=== PATIENT | female | born 1970 | race Hispanic/Latino ===

== ENCOUNTER 2024-04-27 04:33 | Inpatient (IN) | payer BC ==
[~2024-04-27] VITALS: Ht 162.6 cm; Wt 56.7 kg
[2024-04-27] MEDS: ondanSETRON 4MG INJ IVP ONE (05:12)
[2024-04-27] MEDS: LACTATED RINGERS 1000ML 1,000 ML IV ONE (05:12)
[2024-04-27] MEDS: morPHINE 4 MG SYG IVP ONE (05:12)
[2024-04-27 05:13] LABS: BASOPHILS # (AUTO) 0.03 K/uL (0.00-0.20); BASOPHILS % (AUTO) 0.5 % (0.0-5.0); EOSINOPHILS # (AUTO) 0.05 K/uL (0.00-0.70); EOSINOPHILS % (AUTO) 0.8 % (0.0-8.0); HEMATOCRIT 44.4 % (36-48); IMMATURE GRANULOCYTE ABSOLUTE 0.02 K/uL (0-1); LYMPHOCYTES # (AUTO) 2.7 K/uL (1.0-4.8); LYMPHOCYTES % (AUTO) 44.4 % (21.0-51.0); MEAN CORPUSCULAR HEMOGLOBIN 29.8 pg (27.0-33.0); MEAN CORPUSCULAR HGB CONC 33.1 g/dL (32.0-36.0); MEAN CORPUSCULAR VOLUME 89.9 fL (79-99); MONOCYTES # (AUTO) 0.4 K/uL (0.1-1.0); MONOCYTES % (AUTO) 6.8 % (3.0-13.0); NEUTROPHILS # (AUTO) 2.8 K/uL (1.8-7.7); NEUTROPHILS % (AUTO) 47.2 % (40.0-77.0); PLATELET COUNT (AUTO) 230 K/uL (130-400); RED BLOOD CELL COUNT(AUTO) 4.94 MIL/uL (4.00-5.50); RED CELL DISTRIBUTION WIDTH 12.1 % (11.0-15.5)
[2024-04-27 05:23] LABS: CREATININE 0.9 mg/dL (0.5-1.0); POTASSIUM 3.9 mmol/L (3.5-5.1)
[2024-04-27 05:27] LABS: ALBUMIN 3.6 g/dL (3.5-5.0); BILIRUBIN,DIRECT 0.1 mg/dL (0.0-0.3); BILIRUBIN,TOTAL 0.4 mg/dL (0.2-1.0)
[2024-04-27] MEDS ORDERED: IOHEXOL 350 MG/ML 100ML INFUS..BTL IV ONE (06:20)
[2024-04-27 07:14] LABS: APPEARANCE,URINE CLEAR (CLEAR); BILIRUBIN,URINE NEGATIVE (NEGATIVE); COLOR,URINE COLORLESS (YELLOW); GLUCOSE, URINE (UA) NEGATIVE (NEGATIVE); KETONES,URINE NEGATIVE (NEGATIVE); LEUKOCYTE ESTERASE ,URINE NEGATIVE Leu/uL (NEGATIVE); NITRATE,URINE NEGATIVE (NEGATIVE); OCCULT BLOOD,URINE NEGATIVE (NEGATIVE); PH,URINE 6.5 (5.0-8.0); PROTEIN,URINE NEGATIVE (NEGATIVE); UROBILINOGEN,URINE 0.2 mg/dL (0.2-1.0)
[2024-04-27 07:15] LABS: ADD UA MICROSCOPIC NO
[2024-04-27] MEDS ORDERED: ondanSETRON 4MG INJ IVP PRN (09:30)
[2024-04-27] MEDS ORDERED: acetaMINOPHEN 325 MG TAB PO PRN (09:30)
[2024-04-27] MEDS ORDERED: morPHINE 2 MG SYG IVP PRN (09:30)
[2024-04-27] MEDS ORDERED: PoTASSium chloRIDE 20MEQ/100ML 100 ML IV PRN (10:00)
[2024-04-27] MEDS ORDERED: MAGNESIUM 2GM PREMIX 50ML 50 ML IV PRN (10:00)
[2024-04-27] MEDS: 0.9%NACL 1000ML 1,000 ML IV SCH (11:52)
[2024-04-27] MEDS ORDERED: OMEP40CA21 PO (12:05)
[2024-04-27] MEDS ORDERED: METO-408 PO (12:05)
[2024-04-27] MEDS ORDERED: ELET40TA PO (12:05)
[2024-04-27] MEDS ORDERED: ROSU40 PO (12:05)
[2024-04-27] MEDS ORDERED: FLUT1DIS3 IH (12:06)
[2024-04-27 12:42] VITALS: BP 122/73; PULSE 63; RESP 20; TEMP 97.1
[2024-04-27 13:10] VITALS: O2SAT 98
[2024-04-27 15:05] VITALS: BP 128/72; PULSE 67; RESP 18; TEMP 97.7
[2024-04-27 20:00] VITALS: BP 132/79; PULSE 53; RESP 20; TEMP 97.8; O2SAT 93
[2024-04-27] MEDS: FAMOTIDINE 20MG VIAL IV SCH (20:14)
[2024-04-27 23:40] VITALS: BP 110/62; PULSE 68; RESP 20; TEMP 97.6
[2024-04-28] VITALS (27 sets, daily range): BP systolic 120–165; BP diastolic 72–97; PULSE 59–89; RESP 15–20; TEMP 97.1–99; O2SAT 93
[2024-04-28 05:37] LABS: HEMATOCRIT 40.1 % (36-48); MEAN CORPUSCULAR HEMOGLOBIN 29.8 pg (27.0-33.0); MEAN CORPUSCULAR HGB CONC 32.9 g/dL (32.0-36.0); MEAN CORPUSCULAR VOLUME 90.5 fL (79-99); RED BLOOD CELL COUNT(AUTO) 4.43 MIL/uL (4.00-5.50); RED CELL DISTRIBUTION WIDTH 12.4 % (11.0-15.5); WHITE BLOOD COUNT (AUTO) 4.7 K/uL (4.8-10.8)
[2024-04-28 06:09] LABS: BILIRUBIN,TOTAL 0.6 mg/dL (0.2-1.0); CREATININE 0.9 mg/dL (0.5-1.0)
[2024-04-28 06:41] LABS: INR 1.06 (0.85-1.15); PARTIAL THROMBOPLASTIN TIME 27.3 SEC (26.3-35.5)
[2024-04-28] MEDS ORDERED: LIDOCAINE HCL 1% 20 ML VIAL ONE (10:37)
[2024-04-28] MEDS ORDERED: proPOFol 10 MG/ML 20ML VIAL IV ONE (10:37)
[2024-04-28] MEDS ORDERED: IOHEXOL-350 50ML VIAL IV ONE (11:07)
[2024-04-28] MEDS: INDOMETHACIN 100 MG SUPP.RECT RC ONE (11:30)
[2024-04-28] MEDS ORDERED: FENTanyl CITRate PF 50 MCG/1 ML 2ML VIAL ONE (12:24)
[2024-04-28] MEDS ORDERED: ondanSETRON 4MG INJ ONE (12:24)
[2024-04-28] MEDS ORDERED: BENZOCAINE/MENTH/CETYLPYRD CL 1 EACH LOZENGE MM PRN (18:00)
[2024-04-29 00:12] VITALS: BP 104/69; PULSE 81; RESP 18; TEMP 97.6
[2024-04-29 04:55] VITALS: BP 115/76; PULSE 76; RESP 18; TEMP 97.9
[2024-04-29 04:57] LABS: HEMATOCRIT 39.5 % (36-48); MEAN CORPUSCULAR HEMOGLOBIN 30.4 pg (27.0-33.0); MEAN CORPUSCULAR HGB CONC 33.7 g/dL (32.0-36.0); MEAN CORPUSCULAR VOLUME 90.4 fL (79-99); RED BLOOD CELL COUNT(AUTO) 4.37 MIL/uL (4.00-5.50); RED CELL DISTRIBUTION WIDTH 11.8 % (11.0-15.5); WHITE BLOOD COUNT (AUTO) 5.2 K/uL (4.8-10.8)
[2024-04-29 05:24] LABS: ALBUMIN 3.1 g/dL (3.5-5.0); BILIRUBIN,DIRECT 0.2 mg/dL (0.0-0.3); BILIRUBIN,TOTAL 0.7 mg/dL (0.2-1.0); CREATININE 0.8 mg/dL (0.5-1.0); POTASSIUM 3.9 mmol/L (3.5-5.1); TOTAL PROTEIN, SERUM 6.1 g/dL (6.0-8.3)
[2024-04-29 07:50] VITALS: O2SAT 98
[2024-04-29 07:57] VITALS: BP 147/82; PULSE 73; RESP 16; TEMP 98.4
[2024-04-29 11:19] VITALS: BP 131/78; PULSE 67; RESP 20; TEMP 98.2
[2024-04-29] MEDS: acetaMINOPHEN 325 MG TAB PO PRN (13:54)
[2024-04-29] MEDS ORDERED: atorVAStatin 20 MG TABLET PO SCH (21:00)
[2024-04-29] MEDS ORDERED: FLUTICASONE IH SCH (21:00)
[2024-04-29] MEDS ORDERED: SALMETEROL IH SCH (21:00)
[2024-04-30] MEDS ORDERED: metOPROLol sucCINATE 25 MG TAB.SR.24H PO SCH (09:00)
[2024-04-30] MEDS ORDERED: ELETRIPTAN HBR PO SCH (09:00)
[2024-04-30] MEDS ORDERED: PANTOPrazole 40 MG TAB DR PO SCH (09:00)
== END 2024-04-29 14:45 | disposition home or self-care (01) | DRG 446 ==
LOC: EDH 04:33 → OBSVTOIN 06:21 → EDHIP 06:21 → 4CH 12:25
PROVIDERS: ADMIT Internal Medicine; ATTEND Internal Medicine
PROC: 0F798ZZ Dilation of Common Bile Duct, Via Natural or Artificial Opening Endoscopic (ICD-10-PCS; principal; 2024-04-28)
DX: K80.50 Calculus of bile duct without cholangitis or cholecystitis without obstruction (principal); K83.8 Other specified diseases of biliary tract; I10 Essential (primary) hypertension; J45.909 Unspecified asthma, uncomplicated; G43.909 Migraine, unspecified, not intractable, without status migrainosus; E78.00 Pure hypercholesterolemia, unspecified; Z88.8 Allergy status to other drugs, medicaments and biological substances; Z88.2 Allergy status to sulfonamides; Z90.49 Acquired absence of other specified parts of digestive tract; Z90.710 Acquired absence of both cervix and uterus
CPT/HCPCS: 36415; 43262; 43264; 74177; 74181; 74328; 74330; 76705; 80048; 80053; 80076; 81003; 82150; 83690; 83735; 84484; 85025; 85027; 85610; 85730; 93005; 96374; 96375; C1769; G0378; J2270; J2405; J2704; J3010; J3490; J7030; J7120; Q9967; A4615; A7002; S8037